=== PATIENT | female | born 1945 | race Native Hawaiian/Other Pacific Islander ===

== ENCOUNTER 2017-08-12 06:53 | Day surgery (SDC) | payer OTHER ==
[2017-08-10 10:56] VITALS: BMI 23.5
--- NOTE | 2017-08-12 09:38 | CP.PCM.PN ---
Subjective - Date & Time of Evaluation Date of Evaluation: 08/12/17 Time of Evaluation: 09:33 - Subjective Subjective: PROCEDURE NOTE Proc: TILT Table test Indic: Near syncope; recurrent dizziness DOS: 08/12/17 Ref Physician: Dr King Preliminary report Impression: Appropriate heart rate and blood pressure response to Tilt Table Test Asymptomatic throughout the test Plan: Linq loop recorder implant
[2017-08-12] MEDS ORDERED: ceFAZolin 1 gm FROZEN Premix 1 GM/50 ML ML IVPB ONE (09:57)
== END 2017-08-12 11:00 | disposition home or self-care (01) ==
LOC: C.SPRAD 06:53
PROVIDERS: ATTEND Internal Medicine
DX: R42 Dizziness and giddiness (principal); R55 Syncope and collapse
CPT/HCPCS: 93660; J0690

== ENCOUNTER 2018-08-21 06:56 | Day surgery (SDC) | payer OTHER ==
[2018-08-21 08:36] VITALS: BMI 25.7
[2018-08-21] MEDS ORDERED: Lidocaine 2% MPF (5 ml) Inj ONE ×2 (08:42→08:43)
[2018-08-21 08:52] LABS: BASO % 0.8 % (0.0-2.0); EOS # 0.1 K/uL (0.0-0.7); EOS % 2.6 % (0.0-4.0); HEMOGLOBIN 11.3 g/dL (11.0-16.0); LYMPH # 1.6 K/uL (1.0-4.3); LYMPH % 32.3 % (20.0-40.0); MEAN CELL VOLUME 92.1 fL (81.0-99.0); MEAN CORPUSCULAR HGB CONC 33.6 g/dL (33.0-37.0); MEAN PLATELET VOLUME 6.5 fL (7.2-11.7); MONO # 0.6 K/uL (0.0-0.8); MONO % 11.5 % (0.0-10.0); NEUT # 2.7 K/uL (1.8-7.0); NEUT % 52.8 % (50.0-75.0); NRBC % 0.1 % (0.0-2.0); RBC 3.66 Mil/uL (3.80-5.20); RED CELL DISTRIBUTION WIDTH 12.8 % (11.5-14.5); WHITE BLOOD COUNT 5.1 K/uL (4.8-10.8)
[2018-08-21] MEDS ORDERED: ceFAZolin 1 gm FROZEN Premix 1 GM/50 ML ML IVPB ONE ×2 (08:59→09:04)
[2018-08-21 09:01] LABS: BLOOD UREA NITROGEN 16 mg/dL (7-17); CALCIUM 8.8 mg/dl (8.6-10.4); GFR NON-AFRICAN AMERICAN > 60
--- NOTE | 2018-08-21 18:07 | CARDCATH ---
PROCEDURE DATE: 08/21/2018 PROCEDURES: Explant of loop recorder. ELECTRIC SWITCH TESTER: Olena King MD. INDICATIONS: Recurrent palpitations with dizziness. DESCRIPTION OF PROCEDURES: The patient was taken to the tag and label cutter and was draped in the usual aseptic routine fashion. A 2 cm incision was made 2 inches left of the left parasternal area. Local anesthesia was used. Ancef 2 g IV piggyback was given during procedure. Explant was done successfully with minimal blood loss. The patient tolerated the procedure well. No complications. Olena King MD
[2018-08-23 12:53] VITALS: RESP 18; O2SAT 100
== END 2018-08-21 12:00 | disposition home or self-care (01) ==
LOC: C.SPRAD 06:56
PROVIDERS: ATTEND Internal Medicine
DX: R00.2 Palpitations (principal); R42 Dizziness and giddiness
CPT/HCPCS: 33284; 36415; 80048; 82948; 85025; 85610; 85730; 94770; J0690